=== PATIENT | male | born 1960 | race Caucasian/White ===

== ENCOUNTER → 2017-09-11 | Outpatient (CLI) | payer OTHER ==
[~2017-09-11] MED LIST: ACET500C41 PO; ALPH200T3 PO; ASPI-1471 PO; ATOR-1 PO; BIOT250012 PO; BLOO-1318 MC; CHOL200074 PO; CHRO1000 PO; CINN500C12 PO; COCO1000 PO; ECHI80CA2 PO; ESCI10TA8 PO; FENO160T11 PO; FOLI0.4T56 PO; INSU100I28 SQ; INSU100I30 SQ; INSU100I35 SQ; INSU200I4 SC; L.AC1CAP6 PO; LANI SUBQ; LANS30CA63 PO; LISI-362 PO; MAGN250T26 PO; MELA3TAB31 PO; METF-420 PO; MILK175C PO; MULT-27 PO; PEN1DIS. MC; SAW450CA3 PO; VITA150T2 PO; VITA400T2 PO; [UNRECOGNIZED DRUG - CODE] PO
[2017-09-11 15:24] LABS: PLATELET COUNT, AUTOMATED 169 K/uL (150-450)
[2017-09-11 15:47] LABS: LDL CHOLESTEROL 61 mg/dl
== END ==
LOC: LAB 14:25
PROVIDERS: ATTEND Internal Medicine
DX: E11.9 Type 2 diabetes mellitus without complications (principal); I10 Essential (primary) hypertension; E78.5 Hyperlipidemia, unspecified
CPT/HCPCS: 36415; 81001; 82040; 82247; 82310; 82374; 82435; 82465; 82565; 82947; 83036; 83718; 84075; 84132; 84155; 84295; 84443; 84450; 84460; 84478; 84520; 85025